=== PATIENT | female | born 2000 | race Two or more races ===

== ENCOUNTER 2020-05-10 21:41 | Emergency (ER) | payer SELFPAY ==
[~2020-05-10] VITALS: Ht 165.1 cm; Wt 109.0 kg
[2020-05-10 21:48] VITALS: BP 142/79
[2020-05-10] MEDS ORDERED: LORAZEPAM 0.5MG TABLET PO ONE (22:30)
== END 2020-05-11 00:14 | disposition home or self-care (01) ==
LOC: ER 21:41
DX: R00.2 Palpitations (principal); F41.9 Anxiety disorder, unspecified
CPT/HCPCS: 71045; 93005; 99283